=== PATIENT | female | born 1970 | race Caucasian/White ===

== ENCOUNTER 2019-08-17 13:42 | Emergency (ER) | payer OTHER ==
--- NOTE | 2019-08-17 15:27 | ED ---
Head Injury - HPI Summary HPI Summary: Patient is a 48-year-old female identifying as a male who presents with head injury, neck pain, and back pain after a fall. Patient slipped on ice yesterday afternoon and landed on back and hit head. Denies LOC. No lapse in memory of incident, or events before/after. States that last night he went to [facility] and was "wobbly" on his feet, but had no issues with gait today. Is currently experiencing back pain and has a mild headache rated 1/10. Admits to photophobia today only with looking at computer screens. Denies numbness, tingling, blurred vision. Denies nausea and vomiting. Previous concussion 1 year ago and states feels similar, however previous concussion in December 2017 much worse and pt did not recover for 2+ months. Spoke to PCP on the phone, who sent him to ED. Symptoms of neck pain and tailbone pain increased since yesterday, but concussive like symptoms improved. - History Of Current Complaint Chief Complaint: EDFall Stated Complaint: POSSIBLE CONCUSSION BACK LEFT HIP PAIN Time Seen by Provider: 08/17/19 15:00 Hx Obtained From: Patient Mechanism Of Injury: Fall From A Standing Position Onset of Pain: Immediate Pain Intensity: 2 Location of Head Injury: Occipital Character: Aching Associated Signs And Symptoms: Negative Related History: Similar Episode/Dx as - previous concussion - Allergies/Home Medications Allergies/Adverse Reactions: Allergies Allergy/AdvReac Type Severity Reaction Status Date / Time No Known Allergies Allergy Verified 08/17/19 13:52 Home Medications: Home Medications Fluticasone-Salmeterol 100-50* [Advair Diskus 100-50*] 1 puff INH BID 08/17/19 [ History Confirmed 08/17/19] Levothyroxine TAB* [Synthroid TAB*] 112 mcg PO DAILY 08/17/19 [History Confirmed 08/17/19] Testosterone Gel 25 mg (Nf) [Testosterone Gel 25 mg/2.5 g] 4 pump TOPICAL DAILY 08/17/19 [History Confirmed 08/17/19] metFORMIN* [Glucophage 1000 MG TAB *] 1,000 mg PO DAILY 08/17/19 [History Confirmed 08/17/19] PMH/Surg Hx/FS Hx/Imm Hx Endocrine/Hematology History: Reports: Hx Diabetes Cardiovascular History: Reports: Hx Hypercholesterolemia Infectious Disease History: No Infectious Disease History: Denies: Traveled Outside the [place] in Last 30 Days - Social History Alcohol Use: Occasionally Substance Use Type: Reports: None Smoking Status (MU): Never Smoked Tobacco Review of Systems Constitutional: Negative Eyes: Negative Positive: Photophobia. Negative: Blurred Vision, Diplopia ENT: Negative Cardiovascular: Negative Negative: Chest Pain Respiratory: Negative Negative: Shortness Of Breath Gastrointestinal: Negative Negative: Abdominal Pain, Vomiting, Nausea Genitourinary: Negative Positive: no symptoms reported Musculoskeletal: Other - cervical and lumbar back pain Negative: Decreased ROM Skin: Negative Positive: Headache. Negative: Weakness, Paresthesia, Numbness, Syncope, Slurred Speech Psychological: Normal All Other Systems Reviewed And Are Negative: Yes Physical Exam Triage Information Reviewed: Yes Vital Signs On Initial Exam: Initial Vitals Temp Pulse Resp BP Pulse Ox 99.4 F 82 18 131/82 97 08/17/19 13:46 08/17/19 13:46 08/17/19 13:46 08/17/19 13:46 08/17/19 13:46 Vital Signs Reviewed: Yes Appearance: Positive: Well-Appearing, No Pain Distress, Well-Nourished Skin: Positive: Warm, Skin Color Reflects Adequate Perfusion, Dry Head/Face: Positive: Normal Head/Face Inspection Eyes: Positive: Normal, EOMI, BONI, Conjunctiva Clear ENT: Positive: Normal ENT inspection, Hearing grossly normal Neck: Positive: Supple, Nontender, No Lymphadenopathy. Negative: Nuchal Rigidity Respiratory/Lung Sounds: Positive: Clear to Auscultation, Breath Sounds Present. Negative: Rales, Rhonchi, Tracheal Deviation, Wheezes Cardiovascular: Positive: Normal, RRR, Pulses are Symmetrical in both Upper and Lower Extremities, S1, S2. Negative: Tachycardia Abdomen Description: Positive: Nontender, No Organomegaly, Soft Bowel Sounds: Positive: Present Musculoskeletal: Positive: Strength/ROM Intact, Pain @ Neurological: Positive: Normal, Sensory/Motor Intact, Alert, Oriented to Person Place, Time, Facial Symmetry, Speech Normal. Negative: EOM Palsy, Rhomberg, Heel to Toe, Finger to Nose Psychiatric: Positive: Normal - Go Coma Scale Best Eye Response: 4 - Spontaneous Best Motor Response: 6 - Obeys Commands Best Verbal Response: 5 - Oriented Coma Scale Total: 15 Procedures - Sedation Patient Received Moderate/Deep Sedation with Procedure: No Diagnostics - Vital Signs Vital Signs Temp Pulse Resp BP Pulse Ox 08/17/19 13:46 99.4 F 82 18 131/82 97 - Laboratory Lab Statement: Any lab studies that have been ordered have been reviewed, and results considered in the medical decision making process. Head Injury Course/Dx Assessment/Plan: 48-year-old female who identifies as a male. Slipped on ice yesterday and hit head w/o LOC. Also hurt back. Denies nausea, vomitig. Remembers events clearly. Neuro intact. [place] Head score does not support head CT at this time. According to [place] CT Head Rules, CT was NOT obtained d /t: GCS score >15 at 2h post injury. No suspected open or depressed skull fx, no sign of basal skull fx, no hemotympanum, raccoon eyes, Battles sign, CSF jhoan -/rhinorrhea, no emesis after injury, age <64yo, no amnesia greater than 30 minutes prior to trauma, and mechanism of injury was minimal impact with no MVA or fall greater than 3 ft. Complete neuro exam completed and WNL. Normal head/ face inspection with no cephalohematoma. Reflexes intact. EOMI, BONI, visual acuity intact. No obvious confusion or memory loss per patient and family. MMSE OK. GCS 15. Patient oriented to person, place and date. No obvious deformity or signs of trauma. Finger to nose, heel to toe OK. Speech normal, facial symmetry, normal gait, CN II-III intact. Patient denies LOC. ROM, strength, reflexes in upper and lower extremity intact, sensation intact. No tenderness over cervical, thoracic and lumbar spine on palpation. No step-off noted. No ecchymosis. Patient is ambulating well and rates her pain at 3/10. X-rays are not obtained at this time and this was explained to the patient. He is okay with this plan. States he will follow-up with his PCP for any worsening back pain. Patient discharged with return precautions and post- concussive symptoms explained to patient. Patient agrees to follow up and return if needed. Encouraged ibuprofen and Tylenol intermittently as well as moist heat. Note given for work 3 days. - Diagnoses Differential Diagnosis/HQI/PQRI: Concussion Without LOC, Contusion, Intracranial Bleed, Skull Fracture, Other - msk pain, lumbar spine strain Provider Diagnoses: Concussion Discharge ED - Sign-Out/Discharge Documenting (check all that apply): Patient Departure - Discharge Plan Condition: Stable Disposition: HOME Patient Education Materials: Concussion (ED), Post Concussion Syndrome (ED) Forms: *Work Release Referrals: Jone Walker MD [Primary Care Provider] - 2 Days Additional Instructions: Rest is very important after a concussion because it helps the brain to heal. Ignoring your symptoms and trying to tough it out often makes symptoms worse. Be patient because healing takes time. Only when your symptoms have reduced significantly, in consultation with your health palliative care nurse practitioner, should you slowly and gradually return to your daily activities, such as work or school. If your symptoms come back or you get new symptoms as you become more active, this is a sign that you are pushing yourself too hard. Stop these activities and take more time to rest and recover. As the days go by, you can expect to gradually feel better. Getting Better: Tips Get plenty of sleep at night, and rest during the day. Avoid activities that are physically demanding (e.g., heavy house cleaning, weightlifting/working-out) or require a lot of concentration (e.g., balancing your checkbook). They can make your symptoms worse and slow your recovery. Avoid activities such as contact or recreational sports, that could lead to another concussion. (It is best to avoid roller coasters or other high speed rides that can make your symptoms worse or even cause a concussion.) When your health palliative care nurse practitioner says you are well enough, return to your normal activities gradually, not all at once. Because your ability to react may be slower after a concussion, ask your health palliative care nurse practitioner when you can safely drive a car, ride a bike, or operate heavy equipment. Talk with your health palliative care nurse practitioner about when you can return to work. Ask about how you can help your employer understand what has happened to you. Consider talking with your employer about returning to work gradually and about changing your work activities or schedule until you recover (e.g., work half- days). Take only those drugs that your health palliative care nurse practitioner has approved. Do not drink alcoholic beverages until your health palliative care nurse practitioner says you are well enough. Alcohol and other drugs may slow your recovery and put you at risk of further injury. Consult with family members or close friends when making important decisions. Avoid sustained computer use, including computer/video games early in the recovery process. Some people report that flying in airplanes makes their symptoms worse shortly after a concussion. - Billing Disposition and Condition Condition: STABLE Disposition: Home
--- OUTSIDE RECORDS SUMMARY | 2019-08-17 16:45 | XMS REPORT | Continuity of Care Document ---
:1970 Author Organization [facility] Address [address] [place] [address] Phone Care Team Providers Name Role Phone Tiara Hernandez NP Unavailable Unavailable Allergies, Adverse Reactions, Alerts Substance Reaction Status No Known Allergies Active Medications Medication Instructions Dosage Effective Dates Status Comments (start - stop) Tirosint 112 mcg - Active capsule testosterone 20.25 apply 4 pumps in - Active mg/1.25 gram (1.62 the morning to %) transdermal gel designed areas q pump day code F METFORMIN HCL Not Available - Active (unknown strength) ATORVASTATIN CALCIUM Not Available - Active (unknown strength) ADVAIR DISKUS Not Available - Active (unknown strength) ALBUTEROL INHALER Not Available - Active (unknown strength) Problems Condition Effective Dates (start - Clinical Status Comments stop) Human immunodeficiency virus [HIV] - counseling Encntr screen for dis of the bld/bld-form org/immun mechnsm Transsexualism Endocrine disorder, unspecified Procedures Procedure Date No information Results Test Name Date and Time Measure Units Reference Range Abnormal Flag Status Comments No information Advance Directives Directive Yes / No Effective Date File Name No information Encounters Encounter Practice Location Reason(s) Diagnoses Date Provider Providers Description For Visit Copied on Encounter [facility] [place]. [facility] [address] [facility] [place], [address] [facility], , [place], [place], [address]. [id number], tel:[phone] tel: [phone] [facility] [place] immunodeficiency 3-201 [place]. Provider: [facility] virus [HIV] [address] counselingEncntr [place], [place], [address], [address] [place] the bld/bld-form [place], [address], [address], [place], org/immun [place], [place], [place], [place] [address]. [place], [address]. [id number], smEndocrine tel: tel: [place] disorder, [phone] tel: unspecified [phone] Family History Family Member Diagnosis Age At Onset 1st degree relative No hx of venous thromboembolism 1st degree relative No hx of coronary heart disease (female <65, male <55) 1st degree relative No hx of cancer of breast, colon, endometrium or ovary Immunizations Vaccine Date Status Comments No information Payers Payer name Insurance type Covered green party ID [facility] [id number] Social History Type Description Quantity Date Captured Comments Alcohol Use Details Unknown Caffeine Use Details Unknown Tobacco Use Status Unknown Smoking Status Never smoker Sex Female Vital Signs Date / Height Weight BMI Pulse Blood Temperature Respiratory Body Head BMI Pulse Inhaled Time: Rate Pressure Rate Surface Circumference percentile Ox Ox Area No information Chief Complaint And Reason For Visit No information Reason For Referral Reason For Referral No information Plan Of Treatment Date Type Action Status No information History Of Present Illness Encounter Date Complaint History Of Present Illness No information Functional Status Date Functional Assessment No information Medications Administered Medication Instructions Dosage Effective Dates (start - stop) Status Comments No information Instructions Date Instruction Additional Information No information Assessments Type Assessment Date No information Goals Health Concern Goal Type Priority Status Date No information Medical Equipment Description Device Liberty Device Identifier Effective Dates (start - stop ) Status No information Mental Status Date Cognitive Assessment No information Health Concerns Observation Date No information Concern Status Date No information
== END 2019-08-17 16:00 | disposition home or self-care (01) ==
LOC: ED 13:42
DX: S06.0X9A Concussion with loss of consciousness of unspecified duration, initial encounter (principal); W00.0XXA Fall on same level due to ice and snow, initial encounter; Y92.9 Unspecified place or not applicable; E11.9 Type 2 diabetes mellitus without complications; E78.00 Pure hypercholesterolemia, unspecified; E03.9 Hypothyroidism, unspecified; Z79.84 Long term (current) use of oral hypoglycemic drugs; Z79.890 Hormone replacement therapy; Z79.899 Other long term (current) drug therapy
CPT/HCPCS: 99281

== ENCOUNTER 2019-11-23 09:11 | Emergency (ER) | payer OTHER ==
[2019-11-23 09:40] VITALS: BP 133/76
--- NOTE | 2019-11-23 09:49 | UC ---
General HPI - HPI Summary HPI Summary: Flew from [place], [place] -> [facility] (direct flight). 11/13/19 Drove to [place] on , 11/18/19, visited family member in the hospital in [place]. Attended [employer] conference. Returned via [facility] on Friday11/21/19. Today is Friday. Friday evening + felt sick. + sore throat (L>R). Hurts to swallow. + cough, minimal productive, but when productive ->a lot of geen-yellow No sob /cp / palpitations No GI / sx, but + nausea. No rash. + h/a. + bilat ear discomfort Took temp at home last night, no fever. Resides at home with partner - History of Current Complaint Chief Complaint: UCRespiratory Stated Complaint: COUGH,CONGESTION,SHORT OF BREATH Time Seen by Provider: 11/23/19 09:43 Hx Obtained From: Patient Pain Intensity: 0 - Allergy/Home Medications Allergies/Adverse Reactions: Allergies Allergy/AdvReac Type Severity Reaction Status Date / Time No Known Allergies Allergy Verified 11/23/19 09:40 Home Medications: Home Medications Fluticasone-Salmeterol 100-50* [Advair Diskus 100-50*] 1 puff INH BID 08/17/19 [ History Confirmed 11/23/19] Levothyroxine TAB* [Synthroid TAB*] 112 mcg PO DAILY 08/17/19 [History Confirmed 11/23/19] Testosterone Gel 25 mg (Nf) [Testosterone Gel 25 mg/2.5 g] 4 pump TOPICAL DAILY 08/17/19 [History Confirmed 11/23/19] metFORMIN* [Glucophage 1000 MG TAB *] 1,000 mg PO DAILY 08/17/19 [History Confirmed 11/23/19] Azithromycin TAB* [Zithromax TAB (Z-ALEISHA) 250 mg #6 tabs] 250 mg PO DAILY #6 tab 11/23/19 [Rx] Benzonatate CAP* [Tessalon 100 MG CAP*] 100 mg PO TID PRN #30 cap 11/23/19 [Rx] Ibuprofen TAB* [Advil TAB*] 200 mg PO Q6H PRN 11/23/19 [History Confirmed ] PMH/Surg Hx/FS Hx/Imm Hx Previously Healthy: Yes - Surgical History Surgical History: None - Family History Known Family History: Positive: Hypertension - Social History Alcohol Use: Occasionally Substance Use Type: None Smoking Status (MU): Never Smoked Tobacco Review of Systems All Other Systems Reviewed And Are Negative: Yes Constitutional: Positive: Fever, Fatigue Skin: Positive: Negative Eyes: Positive: Negative ENT: Positive: Sore Throat, Ear Ache, Nasal Discharge, Sinus Congestion Respiratory: Positive: Cough Cardiovascular: Positive: Negative Gastrointestinal: Positive: Nausea Genitourinary: Positive: Negative Motor: Positive: Negative Neurovascular: Positive: Negative Musculoskeletal: Positive: Myalgia Neurological/Mental Status: Positive: Headache Psychological: Positive: Negative Is Patient Immunocompromised?: No Physical Exam Triage Information Reviewed: Yes Appearance: Well-Nourished - sitting up, conversing easily. Looks fatigued, but NAD Vital Signs: Initial Vital Signs Temp 98.7 F 11/23/19 09:36 Pulse 98 11/23/19 09:36 Resp 16 11/23/19 09:36 BP 133/76 11/23/19 09:36 Pulse Ox 96 11/23/19 09:36 Eye Exam: Other - eyes watery, a little injected but o/w nad ENT: Positive: Pharyngeal erythema - + post pharynx redness, no sores / exudates mmm, Nasal congestion, Nasal drainage, Other - Bilat cerumen impaction Neck exam: Normal Neck: Positive: Supple, Nontender, No Lymphadenopathy Respiratory Exam: Other - + rhonchorus cough BS equal, no rales. Respiratory: Positive: No respiratory distress, No accessory muscle use Cardiovascular Exam: Normal Cardiovascular: Positive: RRR, Pulses Normal, Brisk Capillary Refill Abdominal Exam: Normal Abdomen Description: Positive: Nontender - no cvat, No Organomegaly, Soft Musculoskeletal Exam: Normal - moves x 4 ext's gait steady Neurological Exam: Normal - grossly nonfocal Psychological Exam: Normal - nad Skin Exam: Normal - nondiaphoretic no visible or reported rash Course/Dx - Course Course Of Treatment: Heatl Dept notified by RN. ok to test rapid infl / rst if needed. I feel this is indicated. RST neg Inflluenza a/b [facility] Department was notified and returned another call to RN. [ Do not need to quaratine. S/sx c/w acute bronchitis with yellow-green sputum. D/w pt coa / tx plan. Questions as posed answered to the best of my ability. - Diagnoses Provider Diagnosis: Bronchitis, Cerumen impaction Discharge ED - Sign-Out/Discharge Documenting (check all that apply): Patient Departure All imaging exams completed and their final reports reviewed: No Studies - Discharge Plan Condition: Stable Disposition: HOME Patient Education Materials: Acute Bronchitis (ED), Cerumen Impaction (ED) Forms: *Work Release Referrals: Jone Walker MD [Primary Care Provider] - - Billing Disposition and Condition Condition: STABLE Disposition: Home
--- OUTSIDE RECORDS SUMMARY | 2019-11-23 10:09 | XMS REPORT | Continuity of Care Document ---
:1970 Author Organization [facility] Address [address] [place] [address] Phone Care Team Providers Name Role Phone Alysia Matute NP Unavailable Unavailable Allergies, Adverse Reactions, Alerts Substance Reaction Status No Known Allergies Active Medications Medication Instructions Dosage Effective Dates Status Comments (start - stop) testosterone 20.25 apply 4 pumps in - Active mg/1.25 gram (1.62 the morning to %) transdermal gel designed areas q pump day code F Tirosint 112 mcg - Active capsule METFORMIN HCL Not Available - Active (unknown strength) ATORVASTATIN Not Available - Active CALCIUM (unknown strength) ADVAIR DISKUS Not Available - Active (unknown strength) ALBUTEROL INHALER Not Available - Active (unknown strength) testosterone 20.25 apply 4 pumps in - No Longer mg/1.25 gram (1.62 the morning to Active %) transdermal gel designed areas q pump day code F Problems Condition Effective Dates (start - Clinical [...] Description For Visit Copied on [facility]counter [facility] [place] [facility]. [facility] [address] [place], [place] [address], , [place], [place], [place], [place], [id number], [id number], [place]. tel:+ [phone] [facility] [place] immunodeficiency [place]. Provider: Of Greater virus [HIV] [address] [place] counselingEncntr [place] Hernandez, [address] for dis of [address], [address], [place] the bld/bld-form [place], [address], [place], [place], org/immun [facility], [id number], [place] [address]. [place], [address]. [place] smEndocrine tel: tel:+ tel: disorder, [phone] unspecified Family History Family Member Diagnosis Age At Onset 1st degree relative No hx of venous thromboembolism 1st degree relative No hx of coronary heart disease (female <65, male <55) 1st degree relative No hx of cancer of breast, colon, endometrium or ovary Immunizations Vaccine Date Status Comments No information Payers Payer name Insurance type Covered green party ID Authorization(s) Osmany Ortega [facility] [id number] Social History Type Description Quantity Date Captured [...] Plan Of Treatment Date Type Action Status Appointment OLIVA WEISS *SAM* BOOKED History Of Present Illness Encounter Date Complaint History Of Present Illness No information Functional Status Date Functional Assessment No information Medications Administered Medication Instructions Dosage Effective Dates (start - stop) Status Comments No information Instructions Date Instruction Additional Information No information Assessments Type Assessment Date No information Goals Health Concern Goal Type Priority Status Date No information Medical Equipment Description Device Chandler Device Identifier Effective Dates (start - stop ) Status No information Mental Status Date Cognitive Assessment No information Health Concerns Observation Date No information Concern Status Date No information
[2019-11-23 10:22] LABS: Influenza A Molecular Negative (Negative); Influenza B Molecular Negative (Negative)
== END 2019-11-23 11:30 | disposition home or self-care (01) ==
LOC: UCEAST 09:11
DX: H61.23 Impacted cerumen, bilateral (principal); J20.9 Acute bronchitis, unspecified; R09.89 Other specified symptoms and signs involving the circulatory and respiratory systems; R09.81 Nasal congestion
CPT/HCPCS: 87651; 99213; G0463